=== PATIENT | male | born 1990 | race American Indian/Alaskan Native ===

== ENCOUNTER 2021-01-10 14:49 | Emergency (ER) | payer SELFPAY ==
[2021-01-10 15:08] VITALS: BP 147/93
--- NOTE | 2021-01-10 16:49 | Emergency Department Report ---
ED General Adult HPI - General Chief complaint: Dental/Oral Stated complaint: ORAL GUMS SWOLLEN Time Seen by Provider: 01/10/21 15:35 Source: patient Mode of arrival: Ambulatory Limitations: No Limitations - History of Present Illness Initial comments: Patient complains of right lower dental pain x2 days. He reports there is gum swelling and the pain worsens with chewing. Patient reports he has a dental appointment scheduled for tomorrow. He denies any fever/chills/sweats or dysphagia. No difficulty opening his jaw per patient. - Related Data Previous Rx's Medication Instructions Recorded Last Taken Type Acetaminophen/Codeine [Tylenol 1 tab PO Q8H PRN #8 tab 01/10/21 Unknown Rx /Codeine # 3 tab] Chlorhexidine Mouthwash [Peridex] 15 ml MM BID 14 Days #1 bottle 01/10/21 Unknown Rx Penicillin V Potassium 500 mg PO QID 7 Days #28 tablet 01/10/21 Unknown Rx Allergies Allergy/AdvReac Type Severity Reaction Status Date / Time No Known Allergies Allergy Unverified 01/10/21 15:04 ED Review of Systems ROS: Stated complaint: ORAL GUMS SWOLLEN Other details as noted in HPI Constitutional: denies: chills, fever ENT: dental pain. denies: ear pain, throat pain Respiratory: denies: cough, shortness of breath Cardiovascular: denies: chest pain Gastrointestinal: denies: nausea, vomiting Skin: denies: change in color Hematological/Lymphatic: denies: swollen glands ED Past Medical Hx - Past Medical History Previous Medical History?: No - Surgical History Past Surgical History?: No - Social History Smoking Status: Current Every Day Smoker Substance Use Type: Marijuana - Medications Home Medications: Home Medications Medication Instructions Recorded Confirmed Last Taken Type Acetaminophen/Codeine [Tylenol 1 tab PO Q8H PRN #8 tab 01/10/21 Unknown Rx /Codeine # 3 tab] Chlorhexidine Mouthwash [Peridex] 15 ml MM BID 14 Days #1 bottle 01/10/21 Unknown Rx Penicillin V Potassium 500 mg PO QID 7 Days #28 tablet 01/10/21 Unknown Rx ED Physical Exam - General Limitations: No Limitations General appearance: alert, in no apparent distress - Head Head exam: Present: atraumatic, normocephalic - Eye Eye exam: Present: normal appearance. Absent: scleral icterus - Expanded ENT Exam Expanded Mouth exam: Present: tongue normal. Absent: drooling, trismus, muffled voice Teeth exam: Present: normal inspection 1 - Dental Tenderness, Other (Severe dental caries and dental decay noted with surrounding erythema and swelling of the gums) Throat exam: Positive: normal inspection - Neck Neck exam: Present: normal inspection, full ROM. Absent: lymphadenopathy - Respiratory Respiratory exam: Absent: respiratory distress - Cardiovascular Cardiovascular Exam: Present: regular rate - Neurological Exam Neurological exam: Present: alert, oriented X3 - Psychiatric Psychiatric exam: Present: normal affect, normal mood - Skin Skin exam: Present: warm, dry, intact, normal color. Absent: rash ED Course Vital Signs 01/10/21 15:06 Temperature 99.2 F Pulse Rate 71 Respiratory 16 Rate Blood Pressure 147/93 O2 Sat by Pulse 99 Oximetry ED Medical Decision Making - Medical Decision Making Patient complains of right lower dental pain x2 days. He reports there is gum swelling and the pain worsens with chewing. Patient reports he has a dental appointment scheduled for tomorrow. He denies any fever/chills/sweats or dysphagia. No difficulty opening his jaw per patient. We will treat for dental infection with penicillin and chlorhexidine mouthwash. Recommend follow-up as scheduled with dental specialist tomorrow. Strict return precautions were discussed in detail with patient who verbalized understanding. He is well-appearing stable for discharge home peer Critical care attestation.: If time is entered above; I have spent that time in minutes in the direct care of this critically ill patient, excluding procedure time. ED Disposition Clinical Impression: Dental infection Disposition: DC-01 TO HOME OR SELFCARE Is pt being admited?: No Condition: Stable Instructions: Dental Abscess, Trench Mouth Additional Instructions: Please follow up with your dental specialist as scheduled 01/11/21 Prescriptions: Penicillin V Potassium 500 mg PO QID 7 Days #28 tablet Chlorhexidine Mouthwash [Peridex] 15 ml MM BID 14 Days #1 bottle Acetaminophen/Codeine [Tylenol /Codeine # 3 tab] 1 tab PO Q8H PRN #8 tab PRN Reason: Pain , Severe (7-10) Referrals: PRIMARY CARE, [Primary Care Provider] - 3-5 Days
== END 2021-01-10 17:45 | disposition home or self-care (01) ==
LOC: ED 14:49
DX: K04.7 Periapical abscess without sinus (principal); F17.200 Nicotine dependence, unspecified, uncomplicated; F12.90 Cannabis use, unspecified, uncomplicated; Z79.899 Other long term (current) drug therapy
CPT/HCPCS: 99282

== ENCOUNTER 2021-01-11 13:18 | Emergency (ER) | payer SELFPAY ==
[2021-01-11] MEDS ORDERED: KETOROLAC 30 MG/1 ML INJ IM ONE (13:27)
[2021-01-11] MEDS ORDERED: BUPIVACAINE/PF (0.5%) 5 MG/1 ML 10 ML VIAL INFILTRATI ONE (13:27)
--- NOTE | 2021-01-11 13:39 | Emergency Department Report ---
ED General Adult HPI - General Chief complaint: Dental/Oral Stated complaint: MOUTH/THROAT SWOLLEN Time Seen by Provider: 01/11/21 13:24 Source: patient Mode of arrival: Ambulatory Limitations: No Limitations - History of Present Illness Initial comments: 30-year-old -[place] male patient presents with complaints of new onset of right facial swelling and throat pain today. Patient was seen here yesterday for dental pain. He states he has taken 2 doses of the penicillin that was prescribed. He reports upon awakening he noted his face to be swollen and there to be pain in his throat. He denies any difficulty swallowing, chest pain, trouble breathing, difficulty opening his jaw, or chills/sweats. He states he did not follow-up with his dentist as scheduled today. - Related Data Previous Rx's Medication Instructions Recorded Last Taken Type Acetaminophen/Codeine [Tylenol 1 tab PO Q8H PRN #8 tab 01/10/21 Unknown Rx /Codeine # 3 tab] Chlorhexidine Mouthwash [Peridex] 15 ml MM BID 14 Days #1 bottle 01/10/21 Unknown Rx Penicillin V Potassium 500 mg PO QID 7 Days #28 tablet 01/10/21 Unknown Rx Clindamycin [Clindamycin CAP] 300 mg PO Q6H 10 Days #40 capsule 01/11/21 Unknown Rx metroNIDAZOLE [Flagyl TAB] 500 mg PO Q8HR 7 Days #21 tablet 01/11/21 Unknown Rx Allergies Allergy/AdvReac Type Severity Reaction Status Date / Time No Known Allergies Allergy Verified 01/11/21 13:20 ED Review of Systems ROS: Stated complaint: MOUTH/THROAT SWOLLEN Other details as noted in HPI Constitutional: denies: chills, diaphoresis, fever, malaise, weakness ENT: throat pain Respiratory: denies: cough, shortness of breath Cardiovascular: denies: chest pain Gastrointestinal: denies: abdominal pain, nausea, vomiting Skin: denies: lesions, change in color ED Past Medical Hx - Past Medical History Previous Medical History?: No - Surgical History Past Surgical History?: No - Social History Smoking Status: Current Every Day Smoker Substance Use Type: None - Medications Home Medications: Home Medications Medication Instructions Recorded Confirmed Last Taken Type Acetaminophen/Codeine [Tylenol 1 tab PO Q8H PRN #8 tab 01/10/21 Unknown Rx /Codeine # 3 tab] Chlorhexidine Mouthwash [Peridex] 15 ml MM BID 14 Days #1 bottle 01/10/21 Unknown Rx Penicillin V Potassium 500 mg PO QID 7 Days #28 tablet 01/10/21 Unknown Rx Clindamycin [Clindamycin CAP] 300 mg PO Q6H 10 Days #40 capsule 01/11/21 Unknown Rx metroNIDAZOLE [Flagyl TAB] 500 mg PO Q8HR 7 Days #21 tablet 01/11/21 Unknown Rx ED Physical Exam - General Limitations: No Limitations General appearance: alert, in no apparent distress - Head Head exam: Present: atraumatic, normocephalic - Eye Eye exam: Present: normal appearance. Absent: scleral icterus - Expanded ENT Exam Expanded Mouth exam: Present: tongue normal. Absent: drooling, trismus, muffled voice Teeth exam: Present: dental caries, dental tenderness #, gingival enlargement 1 - Other (Severe dental decay noted and dental caries with dental abscess noted; mild overlying facial swelling noted without cellulitic changes; mild s ubmandibular lymphadenopathy noted) Throat exam: Positive: normal inspection. Negative: tonsillar erythema - Neck Neck exam: Present: lymphadenopathy. Absent: tenderness, meningismus - Respiratory Respiratory exam: Present: normal lung sounds bilaterally. Absent: respiratory distress - Cardiovascular Cardiovascular Exam: Present: regular rate, normal rhythm. Absent: systolic murmur, diastolic murmur, rubs, gallop - Neurological Exam Neurological exam: Present: alert, oriented X3, normal gait - Psychiatric Psychiatric exam: Present: normal affect, normal mood - Skin Skin exam: Present: warm, dry, intact, normal color. Absent: rash ED Course Vital Signs 01/11/21 01/11/21 01/11/21 13:24 16:24 16:43 Temperature 100.0 F H 98.3 F Pulse Rate 103 H 86 Respiratory 20 16 18 Rate Blood Pressure 134/81 Blood Pressure 135/78 [right arm] O2 Sat by Pulse 95 100 Oximetry ED Medical Decision Making - Lab Data Result diagrams: 01/11/21 14:14 01/11/21 14:14 Lab Results 01/11/21 01/11/21 01/11/21 Range/Units 14:14 14:14 14:14 WBC 12.7 H (4.5-11.0) K/mm3 RBC 5.10 H (3.65-5.03) M/mm3 Hgb 14.4 (11.8-15.2) gm/dl Hct 42.9 (35.5-45.6) % MCV 84 (84-94) fl MCH 28 (28-32) pg MCHC 34 (32-34) % RDW 13.6 (13.2-15.2) % Plt Count 207 (140-440) K/mm3 Lymph % (Auto) 8.5 L (13.4-35.0) % [place] % (Auto) 8.6 H (0.0-7.3) % Eos % (Auto) 0.2 (0.0-4.3) % Baso % (Auto) 0.3 (0.0-1.8) % Lymph # (Auto) 1.1 L (1.2-5.4) K/mm3 [place] # (Auto) 1.1 H (0.0-0.8) K/mm3 Eos # (Auto) 0.0 (0.0-0.4) K/mm3 Baso # (Auto) 0.0 (0.0-0.1) K/mm3 Seg Neutrophils % 82.4 H (40.0-70.0) % Seg Neutrophils # 10.4 H (1.8-7.7) K/mm3 Sodium 138 (137-145) mmol/L Potassium 4.0 (3.6-5.0) mmol/L Chloride 100.1 (98-107) mmol/L Carbon Dioxide 29 (22-30) mmol/L Anion Gap 13 mmol/L BUN 6 L (9-20) mg/dL Creatinine 0.9 (0.8-1.3) mg/dL Estimated GFR > 60 ml/min BUN/Creatinine Ratio 7 % Glucose 108 H (75-100) mg/dL Lactic Acid 0.50 L (0.7-2.0) mmol/L Calcium 9.4 (8.4-10.2) mg/dL - Medical Decision Making 30-year-old -[place] male patient presents with complaints of new onset of right facial swelling and throat pain today. Patient was seen here yesterday for dental pain. He states he has taken 2 doses of the penicillin that was prescribed. He reports upon awakening he noted his face to be swollen and there to be pain in his throat. He denies any difficulty swallowing, chest pain, trouble breathing, difficulty opening his jaw, or chills/sweats. He states he did not follow-up with his dentist as scheduled today. Patient noted to have a fever of 100.3 with mild tachycardia with a heart rate of 103. Mild right facial swelling noted on exam without trismus. Obvious dental abscess noted on exam. Incision and drainage performed. Patient given IV clindamycin. CBC shows mildly elevated white count of 12.7. Lactic acid is normal. Given lack of trismus and no difficulty swallowing, I do not suspect extension of the abscess into the submandibular space at this time. Discussed importance of follow-up with dental specialist within the next 2 days. Also discussed in great detail signs and symptoms that should prompt immediate return to the emergency department in detail with patient who verbalized understanding. Instructions included, but were not limited to, difficulty swallowing/breathing, difficulty opening her jaw, continued fever, chest pain, cough, or shortness of breath. His vitals are now normal after Toradol. His pain is controlled. He is stable for discharge home. Prescription for clindamycin given Critical care attestation.: If time is entered above; I have spent that time in minutes in the direct care of this critically ill patient, excluding procedure time. ED Disposition Clinical Impression: Dental abscess Disposition: DC-01 TO HOME OR SELFCARE Is pt being admited?: No Condition: Stable Instructions: Dental Abscess Additional Instructions: Please follow-up with your dental specialist within 2 days. Prescriptions: Clindamycin [Clindamycin CAP] 300 mg PO Q6H 10 Days #40 capsule metroNIDAZOLE [Flagyl TAB] 500 mg PO Q8HR 7 Days #21 tablet Referrals: PRIMARY CARE [Primary Care Provider] - 3-5 Days Forms: Work/School Release Form(ED)
[2021-01-11 14:36] LABS: Basophils % (Auto) 0.3 % (0.0-1.8); Eosinophils % (Auto) 0.2 % (0.0-4.3); Hematocrit 42.9 % (35.5-45.6); Hemoglobin 14.4 gm/dl (11.8-15.2); Lymphocytes # (Auto) 1.1 K/mm3 (1.2-5.4); Lymphocytes % (Auto) 8.5 % (13.4-35.0); Mean Corpuscular HGB Conc 34 % (32-34); Mean Corpuscular Volume 84 fl (84-94); Monocytes # (Auto) 1.1 K/mm3 (0.0-0.8); Monocytes % (Auto) 8.6 % (0.0-7.3); Platelet Count 207 K/mm3 (140-440); Red Cell Distribution Width 13.6 % (13.2-15.2)
[2021-01-11 14:54] LABS: BUN/Creatinine Ratio 7; Blood Urea Nitrogen 6 mg/dL (9-20); Calcium 9.4 mg/dL (8.4-10.2); Hemolysis Index 3
[2021-01-11 16:25] VITALS: BP 135/78
== END 2021-01-11 16:59 | disposition home or self-care (01) ==
LOC: ED 13:18
DX: K04.7 Periapical abscess without sinus (principal); F17.200 Nicotine dependence, unspecified, uncomplicated; Z79.899 Other long term (current) drug therapy
CPT/HCPCS: 36415; 80048; 82140; 85025; 96365; 96372; 99283; J1885

== ENCOUNTER 2021-04-02 12:07 | Emergency (ER) | payer SELFPAY ==
[2021-04-02 13:07] VITALS: BP 130/78
--- NOTE | 2021-04-02 13:20 | Emergency Department Report ---
ED General Adult HPI - General Chief complaint: Dental/Oral Stated complaint: RT SIDE JAW SWOLLEN/TEETH PAIN Time Seen by Provider: 04/02/21 13:09 Source: patient Mode of arrival: Ambulatory Limitations: No Limitations - History of Present Illness Initial comments: 30-year-old -[place] male patient presents with complaints of right lower dental pain x2 days. Patient states pain started after eating fruit roll ups. Patient was seen here in December for the same dental pain and states his symptoms did resolve with the antibiotics given at the time. He has not followed up with a dental specialist, however states he is scheduled to see one tomorrow. He rates his pain as 8/10 in severity and states ibuprofen and other OTC NSAIDs are not helping. No fever/chills/sweats per patient or difficulty swallowing or opening his jaw per patient. - Related Data Previous Rx's Medication Instructions Recorded Last Taken Type Chlorhexidine Mouthwash [Peridex] 15 ml MM BID 14 Days #1 bottle 01/10/21 Unknown Rx Penicillin V Potassium 500 mg PO QID 7 Days #28 tablet 01/10/21 Unknown Rx metroNIDAZOLE [Flagyl TAB] 500 mg PO Q8HR 7 Days #21 tablet 01/11/21 Unknown Rx Acetaminophen/Codeine [Tylenol 1 tab PO Q8H PRN #10 tab 04/02/21 Unknown Rx /Codeine # 3 tab] Clindamycin [Clindamycin CAP] 300 mg PO Q6H 10 Days #40 capsule 04/02/21 Unknown Rx Allergies Allergy/AdvReac Type Severity Reaction Status Date / Time No Known Allergies Allergy Verified 04/02/21 13:08 ED Review of Systems ROS: Stated complaint: RT SIDE JAW SWOLLEN/TEETH PAIN Other details as noted in HPI Constitutional: denies: diaphoresis, fever, malaise, weakness ENT: dental pain. denies: throat pain Respiratory: denies: cough Cardiovascular: denies: chest pain Gastrointestinal: denies: abdominal pain, nausea, vomiting Skin: denies: rash, lesions, change in color ED Past Medical Hx - Social History Smoking Status: Current Every Day Smoker Substance Use Type: None - Medications Home Medications: Home Medications Medication Instructions Recorded Confirmed Last Taken Type Chlorhexidine Mouthwash [Peridex] 15 ml MM BID 14 Days #1 bottle 01/10/21 Unknown Rx Penicillin V Potassium 500 mg PO QID 7 Days #28 tablet 01/10/21 Unknown Rx metroNIDAZOLE [Flagyl TAB] 500 mg PO Q8HR 7 Days #21 tablet 01/11/21 Unknown Rx Acetaminophen/Codeine [Tylenol 1 tab PO Q8H PRN #10 tab 04/02/21 Unknown Rx /Codeine # 3 tab] Clindamycin [Clindamycin CAP] 300 mg PO Q6H 10 Days #40 capsule 04/02/21 Unknown Rx ED Physical Exam - General Limitations: No Limitations General appearance: alert, in no apparent distress - Head Head exam: Present: atraumatic, normocephalic - Eye Eye exam: Present: normal appearance - Expanded ENT Exam Expanded Mouth exam: Absent: drooling, trismus, muffled voice Teeth exam: Present: dental caries 1 - Dental Tenderness (Severe dental decay noted with erythema and small dental abscess; no overlying facial swelling noted) Throat exam: Positive: normal inspection - Neck Neck exam: Present: normal inspection. Absent: lymphadenopathy - Respiratory Respiratory exam: Absent: respiratory distress - Cardiovascular Cardiovascular Exam: Present: regular rate, normal rhythm - Neurological Exam Neurological exam: Present: alert, oriented X3, normal gait - Psychiatric Psychiatric exam: Present: normal affect, normal mood - Skin Skin exam: Present: warm, dry, intact, normal color. Absent: rash ED Course Vital Signs 04/02/21 13:05 Temperature 99.6 F Pulse Rate 75 Respiratory 18 Rate Blood Pressure 130/78 O2 Sat by Pulse 100 Oximetry ED Medical Decision Making - Medical Decision Making 30-year-old -[place] male patient presents with complaints of right lower dental pain x2 days. Patient states pain started after eating fruit roll ups. Patient was seen here in December for the same dental pain and states his symptoms did resolve with the antibiotics given at the time. He has not followed up with a dental specialist, however states he is scheduled to see one tomorrow. He rates his pain as 8/10 in severity and states ibuprofen and other OTC NSAIDs are not helping. No fever/chills/sweats per patient or difficulty swallowing or opening his jaw per patient. Small dental abscess noted on exam without overlying facial swelling/cellulitis. Patient declined incision and drainage. Will treat with clindamycin and warm compresses and follow-up with dental specialist as scheduled tomorrow. Discussed signs and symptoms that should prompt immediate return to the emergency department in detail with patient who verbalized understanding. Patient is well-appearing, his vitals are within normal limits, he is stable for discharge home. Critical care attestation.: If time is entered above; I have spent that time in minutes in the direct care of this critically ill patient, excluding procedure time. ED Disposition Clinical Impression: Dental infection Disposition: DC- TO HOME OR SELFCARE Is pt being admited?: No Does the pt Need Aspirin: No Condition: Stable Instructions: Dental Abscess Prescriptions: Clindamycin [Clindamycin CAP] 300 mg PO Q6H 10 Days #40 capsule Acetaminophen/Codeine [Tylenol /Codeine # 3 tab] 1 tab PO Q8H PRN #10 tab PRN Reason: Pain , Severe (7-10) Referrals: PRIMARY CARE, [Primary Care Provider] - 3-5 Days
[2021-04-02] MEDS ORDERED: ACETAMINOPHEN 500 MG TAB PO STA (13:22)
[2021-04-02] MEDS ORDERED: IBUPROFEN 800 MG TAB PO STA (13:22)
== END 2021-04-02 13:29 | disposition home or self-care (01) ==
LOC: ED 12:07
DX: K04.7 Periapical abscess without sinus (principal); F17.200 Nicotine dependence, unspecified, uncomplicated; Z79.899 Other long term (current) drug therapy
CPT/HCPCS: 99282

== ENCOUNTER 2021-04-02 23:24 | Emergency (ER) | payer SELFPAY ==
[2021-04-03 00:20] VITALS: BP 136/97
[2021-04-03] MEDS ORDERED: ACETAMINOPHEN 500 MG TAB PO ONE (02:45)
[2021-04-03] MEDS ORDERED: IBUPROFEN 800 MG TAB PO ONE (02:45)
[2021-04-03] MEDS ORDERED: IBUPROFEN 800 MG TAB ONE (02:47)
[2021-04-03] MEDS ORDERED: ACETAMINOPHEN 500 MG TAB ONE (02:48)
== END 2021-04-03 01:14 | disposition left against medical advice (07) ==
LOC: ED 23:24
DX: R68.84 Jaw pain (principal); Z53.21 Procedure and treatment not carried out due to patient leaving prior to being seen by health care provider